=== PATIENT | female | born 1980 | race Two or more races ===

== ENCOUNTER 2019-05-30 17:40 | Emergency (ER) | payer MEDICAID, OTHER ==
[~2019-05-30] VITALS: Ht 160 cm; Wt 80.0 kg
[~2019-05-30 17:40] MED LIST: LIDOcaine 1% W/epiNEPHrine 1:100,000 20ml vial ONE
[2019-05-30] MEDS ORDERED: LIDOcaine Viscous 15ml cup MM ONE (20:50)
[2019-05-30] MEDS ORDERED: ketorolac trometh. 30mg/ml inj. IV ONE (22:10)
[2019-05-30] MEDS ORDERED: ondansetron/PF 4mg/2ml inj IV ONE (22:10)
[2019-05-30] MEDS ORDERED: propofol 10mg/ml 20ml vial IV ONE (22:10)
[2019-05-30] MEDS ORDERED: sulfamethoxazole/trimethoprim DS (800/160mg) tablet PO ONE (23:10)
[2019-05-30] MEDS ORDERED: HYDROcodone/acetaminophen 5mg/325mg tablet PO ONE (23:10)
[2019-05-30] MEDS ORDERED: ceFAZolin 1GM/D5W- ADD-VANTAGE 50 ML IV ONE (23:10)
[2019-05-30] MEDS ORDERED: MELO-100 PO (23:14)
[2019-05-30] MEDS ORDERED: HYDR-3965 PO (23:14)
[2019-05-30] MEDS ORDERED: ACET-812 PO (23:14)
[2019-05-30] MEDS ORDERED: SULF1TAB49 PO (23:14)
[2019-05-30] MEDS ORDERED: morphine 4 MG/ML inj SYRINge IV ONE (23:45)
[2019-05-31 00:09] VITALS: BP 124/75
== END 2019-05-31 00:20 | disposition home or self-care (01) ==
LOC: ER 17:41
DX: N75.1 Abscess of Bartholin's gland (principal); Z79.899 Other long term (current) drug therapy
CPT/HCPCS: 56420; 93005; 94760; 96365; 96375; 99152; 99153; 99285; J0690; J1885; J2270; J2405; J2704

== ENCOUNTER 2019-08-15 21:06 | Emergency (ER) | payer MEDICAID ==
[~2019-08-15] VITALS: Ht 160 cm; Wt 94.0 kg
[~2019-08-15 21:06] MED LIST changes: -LIDOcaine 1% W/epiNEPHrine 1:100,000 20ml vial ONE; +MELO-100 PO
[2019-08-15] MEDS ORDERED: ipratropium/albuterol 3ml nebule NEB ONE (21:20)
[2019-08-15] MEDS ORDERED: benzonatate 100mg capsule PO ONE (22:05)
[2019-08-15 22:12] VITALS: BP 139/91
[2019-08-15] MEDS ORDERED: AZIT500T PO (22:26)
[2019-08-15] MEDS ORDERED: ALBU18HF2 INH (22:26)
[2019-08-15] MEDS ORDERED: dexamethasone sod phosphate 10mg/ml inj PO STA (22:41)
== END 2019-08-15 22:57 | disposition home or self-care (01) ==
LOC: ER 21:06
DX: J20.9 Acute bronchitis, unspecified (principal); Z79.899 Other long term (current) drug therapy
CPT/HCPCS: 87502; 87503; 94640; 99283; J1100; 94760